=== PATIENT | female | born 1950 | race Caucasian/White ===

== ENCOUNTER 2017-01-24 10:44 | Emergency (ER) | payer SELFPAY ==
--- NOTE | 2017-01-24 12:11 | ER Document Report ---
HPI - HPI Patient complains to provider of: med refill Onset: Just prior to arrival Onset/Duration: Gradual Quality of pain: No pain Pain Level: Denies Context: Presents complaining of needing a medication refill for her blood pressure medicine. Patient is not currently out of the medication although she will be in the next several days. Patient just moved to this area and has not gotten established with a primary doctor if she does not currently have insurance. Patient complains of bilateral lower extremity swelling off and on for the past 3 months. Patient states that when she wakes up in the morning she does not have swelling but by the end of the day her lower extremities will be swollen. Patient denies any chest pain, dyspnea or leg pain. Patient additionally states that she was on amlodipine, HCTZ, and lisinopril although her doctor forgot to refill her lisinopril at her last visit. Patient states that her blood pressure has been running more elevated than normal and she suspects that this is because she has not been taking the lisinopril. Associated Symptoms: Other - Extremity swelling Exacerbated by: Denies Relieved by: Denies Similar symptoms previously: No Recently seen / treated by doctor: No - ROS ROS below otherwise negative: Yes Systems Reviewed and Negative: Yes All other systems reviewed and negative - CONSTITUTIONAL Constitutional: DENIES: Fever - NEURO Neurology: DENIES: Headache, Weakness - CARDIOVASCULAR Cardiovascular: DENIES: Chest pain - RESPIRATORY Respiratory: DENIES: Trouble Breathing, Coughing - MUSCULOSKELETAL Musculoskeletal: REPORTS: Swelling - Off and on, presently resolved - DERM Skin Color: Normal Skin Problems: None Past Medical History - General Information source: Patient - Social History Smoking Status: Never Smoker Frequency of alcohol use: None Drug Abuse: None Occupation: none Lives with: Family Family History: Reviewed & Not Pertinent Patient has suicidal ideation: No Patient has homicidal ideation: No - Past Medical History Cardiac Medical History: Reports: Hx Hypertension Renal/ Medical History: Denies: Hx Peritoneal Dialysis Musculoskeltal Medical History: Reports Other - chronic back pain Surgical Hx: Negative Vertical Provider Document - CONSTITUTIONAL Agree With Documented VS: Yes Exam Limitations: No Limitations General Appearance: WD/WN, No Apparent Distress - INFECTION CONTROL TRAVEL OUTSIDE OF THE [place] IN LAST 30 DAYS: No - HEENT HEENT: Atraumatic, Normocephalic - NECK Neck: Normal Inspection, Supple - RESPIRATORY Respiratory: Breath Sounds Normal, No Respiratory Distress, Chest Non-Tender. negative: Rales, Rhonchi, Wheezing O2 Sat by Pulse Oximetry: 97 - CARDIOVASCULAR Cardiovascular: Regular Rate, Regular Rhythm, No Murmur Pulses: Normal: Dorsalis pedis - MUSCULOSKELETAL/EXTREMETIES Musculoskeletal/Extremeties: MAEW, FROM, Non-Tender, No Edema - NEURO Level of Consciousness: Awake, Alert, Appropriate Motor/Sensory: No Motor Deficit - DERM Integumentary: Warm, Dry, No Rash Course - Re-evaluation Re-evalutation: 01/24/17 13:37 RN advised of ordered labs, pt has yet to have blood drawn 01/24/17 14:23 The patient has been informed that they may have pre-hypertension or hypertension based on a blood pressure reading in the emergency department. I recommend that patient call the primary care provider listed on their discharge instructions or a physician of their choice by this week to arrange follow-up for further evaluation of possible pre-hypertension her hypertension. Reviewed patient's medication dosages from her bottles as well as her last paperwork from her primary doctor which does demonstrate that she had been on lisinopril in addition to amlodipine and HCTZ. - Vital Signs Vital signs: Temp Pulse Resp BP Pulse Ox 98.5 F 77 17 155/88 H 97 01/24/17 11:00 01/24/17 11:00 01/24/17 11:00 01/24/17 11:00 01/24/17 11:00 - Laboratory Result Diagrams: 01/24/17 13:35 Laboratory results interpreted by me: 01/24/17 14:22 Labs- Entire Visit 01/24/17 01/24/17 13:35 13:35 Sodium 144.0 Potassium 4.0 Chloride 102 Carbon Dioxide 29 Anion Gap 13 BUN 13 Creatinine 0.59 Est GFR ( Amer) > 60 Est GFR (Non-Af Amer) > 60 Glucose 106 Calcium 10.0 Total Bilirubin 0.5 Direct Bilirubin 0.3 Indirect Bilirubin Not Reportable Neonat Total Bilirubin Not Reportable AST 30 ALT 30 Alkaline Phosphatase 99 NT-Pro-B Natriuret Pep 75 Total Protein 8.1 Albumin 4.5 Discharge - Discharge Clinical Impression: Hx of essential hypertension, History of peripheral edema, Medication refill Condition: Stable Disposition: HOME, SELF-CARE Instructions: High Blood Pressure ([facility]), Edema, Peripheral ([facility]), Family Physicians / Practices Additional Instructions: Return immediately for any new or worsening symptoms Followup with your primary care provider, call tomorrow to make a followup appointment You will need to see a primary doctor to refill your blood pressure medications. Prescriptions: Amlodipine Besylate 10 mg PO DAILY #30 tab Hydrochlorothiazide 50 mg PO DAILY #30 tablet Lisinopril [Zestril] 10 mg PO DAILY #30 tablet Forms: Elevated Blood Pressure Referrals: [facility] [Provider Group] - Follow up as needed [facility] [Provider Group] - Follow up tomorrow
[2017-01-24 14:10] LABS: ALANINE AMINOTRANSFERASE 30 U/L (9-52); ALBUMIN 4.5 g/dL (3.5-5.0); ALKALINE PHOSPHATASE 99 U/L (38-126); ANION GAP 13 (5-19); ASPARTATE AMINO TRANSFERASE 30 U/L (14-36); BILIRUBIN,DIRECT 0.3 mg/dL (0.0-0.4); BILIRUBIN,TOTAL 0.5 mg/dL (0.2-1.3); BLOOD UREA NITROGEN 13 mg/dL (7-20); CARBON DIOXIDE 29 mmol/L (22-30); CHLORIDE 102 mmol/L (98-107); CREATININE RESULT 0.59 mg/dL (0.52-1.25); GLUCOSE 106 mg/dL (75-110); TOTAL PROTEIN 8.1 g/dL (6.3-8.2)
[2017-01-24 15:23] VITALS: BP 141/79
== END 2017-01-24 15:23 | disposition home or self-care (01) ==
LOC: ER 10:44
DX: Z76.0 Encounter for issue of repeat prescription (principal); R60.0 Localized edema; I10 Essential (primary) hypertension; M79.89 Other specified soft tissue disorders; Z79.899 Other long term (current) drug therapy
CPT/HCPCS: 36415; 80053; 83880; 99282

== ENCOUNTER → 2017-12-25 | Outpatient (CLI) | payer MEDICARE, OTHER ==
--- NOTE | 2017-12-25 12:58 | RADIOLOGY REPORT (SQ) ---
EXAM DESCRIPTION: CAROTID DOPPLER COMPLETED DATE/TIME: 12/25/2017 12:13 pm REASON FOR STUDY: HTN DIZZINESS R42 DIZZINESS AND GIDDINESS I10 ESSENTIAL (PRIMARY) HYPERTENSION COMPARISON: None. TECHNIQUE: Grayscale ultrasound, Doppler velocity and spectra, and color Doppler images acquired of the extra-cranial carotid and vertebral arteries. Images stored on PACS. LIMITATIONS: None. FINDINGS: RIGHT CAROTID CCA Velocities: Within normal limits. ICA Velocities Peak systolic 0.6 m/s. End diastolic 0.31 m/s. Proximal ICA/CCA peak systolic ratio 1.0. Spectra normal. No significant plaque. LEFT CAROTID CCA Velocities: Within normal limits. ICA Velocities Peak systolic 1.06 m/s. End diastolic 0.39 m/s. Proximal ICA/CCA peak systolic ratio 1.5. Spectra normal. No significant plaque. VERTEBRAL ARTERIES: Antegrade flow. Normal waveforms. SUBCLAVIAN ARTERIES: No finding. OTHER: No other significant finding. IMPRESSION: NO HEMODYNAMICALLY SIGNIFICANT STENOSIS. COMMENT: Quality ID #[id number]: Velocity criteria are extrapolated from the diameter data as defined by t he Society of Radiologists in Ultrasound Consensus Conference. Radiology 2003: 229; 340-346. TECHNICAL DOCUMENTATION: JOB ID: [id number] [employer].- All Rights Reserved Reading location - IP/workstation name: [email or web address]
--- NOTE | 2017-12-27 19:12 | XCELERA REPORT ---
[address] [address] Transthoracic Echocardiogram Report Name: DERECK LITTLEJOHN Age: 67 yrs Gender: Female : 1950 Patient Status: Outpatient Patient Location: Study Date: 12/25/2017 09:42 AM Height: 63 in Weight: 180 lb BSA: 1.8 m2 Procedure: A two-dimensional transthoracic echocardiogram with color flow and Doppler was performed. The study was technically limited with all images being suboptimal in quality. Reason For Study: HTN DIZZINESS History: HTN DIZZINESS. Ordering Physician: ALOK VALENTINO Performed By: Iman Alford Interpretation Summary The left ventricle is normal in size. There is normal left ventricular wall thickness. LV EF is > than 65% Left ventricular systolic function is normal. Doppler measurements suggest impaired left ventricular relaxation, which is associated with grade I/IV or mild diastolic dysfunction The left ventricular wall motion is normal. There is no thrombus. There is no ventricular septal defect visualized. The right ventricle is not well visualized secondary to technical limitations The left atrial size is normal. The interatrial septum is intact with no evidence for an atrial septal defect. Mild Calcium Posterior mitral valve leaflet. There is no evidence of mitral valve prolapse. There is no vegetation seen on the mitral valve. There is no mitral valve stenosis. There is a trace amount of mitral regurgitation The aortic valve is trileaflet. The aortic valve opens well. The aortic valve is mildly calcified There is no aortic valvular vegetation. There is no aortic valve stenosis There is no LVOT obstruction. No aortic regurgitation is present. There is no tricuspid stenosis. There is a trace amount of tricuspid regurgitation Right ventricular systolic pressure is at the upper limits of normal RVSP is 30 mm of Hg , with RA mean of 5. There is no pulmonic valvular stenosis. There is a trace amount of pulmonic regurgitation The aortic root is normal size. There is no pericardial effusion. MMode/2D Measurements & Calculations RVDd: 3.6 cm LVIDd: 4.0 cm FS: 37.2 % Ao root diam: 2.7 cm IVSd: 1.1 cm LVIDs: 2.5 cm EDV(Teich): 69.3 ml LVPWd: 1.0 cm ESV(Teich): 22.4 ml Ao root area: 5.7 cm2 EF(Teich): 67.7 % LA dimension: 3.7 cm Doppler Measurements & Calculations MV E max prerna: MV P1/2t max prerna: Ao V2 max: LV V1 max P.9 cm/sec 84.4 cm/sec 123.3 cm/sec 4.4 mmHg MV A max prerna: MV P1/2t: 65.2 msec Ao max PG: LV V1 max: 110.1 cm/sec 6.1 mmHg 104.6 cm/sec MV E/A: 0.77 MVA(P1/2t): 3.4 cm2 MV dec slope: 379.2 cm/sec2 MV dec time: 0.22 sec PA V2 max: PI end-d prerna: TR max prerna: 106.6 cm/sec 118.1 cm/sec 249.8 cm/sec PA max PG: TR max P.5 mmHg 25.0 mmHg Left Ventricle The left ventricle is normal in size. There is normal left ventricular wall thickness. LV EF is > than 65%. Left ventricular systolic function is normal. Doppler measurements suggest impaired left ventricular relaxation, which is associated with grade I/IV or mild diastolic dysfunction. The left ventricular wall motion is normal. There is no thrombus. There is no ventricular septal defect visualized. Right Ventricle The right ventricle is not well visualized secondary to technical limitations. Atria The right atrium is normal. The left atrial size is normal. The interatrial septum is intact with no evidence for an atrial septal defect. Mitral Valve Mild Calcium Posterior mitral valve leaflet. There is no evidence of mitral valve prolapse. There is no vegetation seen on the mitral valve. There is no mitral valve stenosis. There is a trace amount of mitral regurgitation. Aortic Valve The aortic valve is trileaflet. The aortic valve opens well. The aortic valve is mildly calcified. There is no aortic valvular vegetation. There is no aortic valve stenosis. There is no LVOT obstruction. No aortic regurgitation is present. Tricuspid Valve There is no tricuspid stenosis. There is a trace amount of tricuspid regurgitation. Right ventricular systolic pressure is at the upper limits of normal. RVSP is 30 mm of Hg , with RA mean of 5. Pulmonic Valve There is no pulmonic valvular stenosis. There is a trace amount of pulmonic regurgitation. Great Vessels The aortic root is normal size. Effusions There is no pericardial effusion. : ALOK VALENTINO > Lizett Peterson
== END ==
LOC: SP 08:28
PROVIDERS: ATTEND Physician Assistant
DX: R42 Dizziness and giddiness (principal); I10 Essential (primary) hypertension
CPT/HCPCS: 93306; 93880

== ENCOUNTER → 2019-01-31 | Outpatient (CLI) | payer MEDICARE, MEDICAID ==
--- NOTE | 2019-01-31 12:01 | RADIOLOGY REPORT (SQ) ---
EXAM DESCRIPTION: U/S ABDOMEN COMPLETE W/DOPPLER COMPLETED DATE/TIME: 01/31/2019 7:37 am REASON FOR STUDY: EPIGASTRIC SWELLING, MASS OR LUMP (R19.06) R19.06 EPIGASTRIC SWELLING, MASS OR RUPERT MP COMPARISON: None. TECHNIQUE: Dynamic and static grayscale images acquired of the abdomen and recorded on PACS. Additio nal selected color Doppler and spectral images recorded. Note: Study does not meet criteria for complete doppler/duplex scan LIMITATIONS: None. FINDINGS: PANCREAS: No masses. Visualized pancreatic duct normal caliber. LIVER: No masses. Echotexture normal. LIVER VASCULATURE: Normal directional flow of the main portal vein and hepatic veins. GALLBLADDER: No stones. Normal wall thickness. No pericholecystic fluid. ULTRASOUND-DETECTED LEWIS'S SIGN: Negative. INTRAHEPATIC DUCTS AND COMMON DUCT: CBD and intrahepatic ducts normal caliber. No filling defects. INFERIOR VENA CAVA: Normal flow. AORTA: No aneurysm. RIGHT KIDNEY: Normal size. Normal echogenicity. No solid or suspicious masses. No hydronephros is. No calcifications. LEFT KIDNEY: Normal size. Normal echogenicity. No solid or suspicious masses. No hydronephrosi s. No calcifications. SPLEEN: Normal size. No solid masses. PERITONEAL AND PLEURAL SPACES: No ascites or effusions. OTHER: No other significant finding. IMPRESSION: NORMAL ABDOMINAL ULTRASOUND. TECHNICAL DOCUMENTATION: JOB ID: [id number]- All Rights Reserved Reading location - IP/workstation name: [email or web address]
== END ==
LOC: RAD 06:56
PROVIDERS: ATTEND Physician Assistant
DX: R19.06 Epigastric swelling, mass or lump (principal)
CPT/HCPCS: 76700; 93976

== ENCOUNTER → 2019-05-23 | Outpatient (CLI) | payer MEDICARE, MEDICAID ==
--- NOTE | 2019-05-23 14:17 | WOMENS IMAGING REPORT ---
EXAM DESCRIPTION: 3D SCREENING MAMMO BILAT COMPLETED DATE/TIME: 05/23/2019 1:55 pm REASON FOR STUDY: Z12.31 SCREENING MAMMO Z12.31 ENCNTR SCREEN MAMMOGRAM FOR MALIGNANT NEOPLASM OF B RE COMPARISON: None. EXAM PARAMETERS: Views: Standard craniocaudal and mediolateral oblique views of each breast recorded using digital acquisition and breast tomosynthesis. Read with the assistance of CAD. .[facility] - R2 Application Software Engineer Version 9.2 LIMITATIONS: None. FINDINGS: No suspicious masses, suspicious calcifications or architectural distortion. No areas of c oncern. IMPRESSION: NEGATIVE MAMMOGRAM. BIRADS 1. BREAST DENSITY: c. The breasts are heterogeneously dense, which may obscure small masses. BIRAD: ASSESSMENT: 1 NEGATIVE RECOMMENDATION: ROUTINE SCREENING COMMENT: The patient has been notified of the results by letter per MQSA requirements. Additional no tification policies are in place for contacting patient with suspicious or incomplete findings. Quality ID #225: The [employer] recommends an annual screening mammogram for women aged 40 years or over. This facility utilizes a reminder system to ensure that all patients receive reminder letters, and/or direct phone calls for appointments. This includes reminders for routine scr eening mammograms, diagnostic mammograms, or other Breast Imaging Interventions when appropriate. Th is patient will be placed in the appropriate reminder system. TECHNICAL DOCUMENTATION: FINDING NUMBER: (1) ASSESSMENT: (1) JOB ID: [id number] [employer]- All Rights Reserved Reading location - IP/workstation name: [email or web address]
== END ==
LOC: WI 13:30
PROVIDERS: ATTEND Physician Assistant
DX: Z12.31 Encounter for screening mammogram for malignant neoplasm of breast (principal)
CPT/HCPCS: 77063; 77067

== ENCOUNTER → 2019-10-22 | Outpatient (CLI) | payer MEDICARE, MEDICAID ==
--- NOTE | 2019-10-22 12:15 | WOMENS IMAGING REPORT ---
EXAM DESCRIPTION: 3D DX MAMMO LEFT UNILAT IMAGES COMPLETED DATE/TIME: 10/22/2019 8:45 am REASON FOR STUDY: N64.4 MASTODYNIA N64.4 MASTODYNIA COMPARISON: Digital tomosynthesis bilateral screening mammogram dated 05/23/2019. EXAM PARAMETERS: Standard craniocaudal and mediolateral oblique images of the breast recorded using digital acquisition and breast tomosynthesis. Read with the assistance of CAD. .[facility] - [employer] Clinical Pathologist Version 9.2 LIMITATIONS: None. FINDINGS: BREAST LATERALITY: LEFT MASSES: A marker was placed over the clinically palpable mass in the upper medial breast, posterior depth. CALCIFICATIONS: No new or suspicious calcifications. ARCHITECTURAL DISTORTION: None. ASYMMETRY: None noted. OTHER: No other significant findings. BREAST ULTRASOUND: TECHNIQUE: Static and dynamic grayscale images acquired of the left breast in the specific areas of c linical/mammographic concern. Selected color Doppler images recorded. ELASTOGRAPHY PERFORMED: No. LIMITATIONS: None. FINDINGS: MASS: A well-circumscribed 1.7 x 0.8 x 1.5 cm hyperechoic mass between the 10-11 o'clock axis. No b lood flow demonstrated. This finding correlates to the clinically palpable mass. ELASTOGRAPHY CHARACTERISTICS: Not applicable. OTHER: No other significant finding. IMPRESSION: 1. A well-circumscribed between the 10-11 o'clock axis on ultrasound examination. This finding correlates to the clinically palpable mass a represent a lipoma. BREAST DENSITY: c. The breast is heterogeneously dense, which may obscure small masses. BIRAD: ASSESSMENT: 3-6 M Probably benign finding. Initial short-interval follow-up suggested. RECOMMENDATION: 1. Clinical correlation and patient advised to follow-up with her provider. The pa tient may desire an ultrasound-guided biopsy. COMMENT: The patient has been notified of the results by letter per SA requirements. Additional no tification policies are in place for contacting patient with suspicious or incomplete findings. Quality ID #225: The [employer] recommends an annual screening mammogram for women aged 40 years or over. This facility utilizes a reminder system to ensure that all patients receive reminder letters, and/or direct phone calls for appointments. This includes reminders for routine scr eening mammograms, diagnostic mammograms, or other Breast Imaging Interventions when appropriate. Th is patient will be placed in the appropriate reminder system. TECHNICAL DOCUMENTATION: FINDING NUMBER: (1) ASSESSMENT: (1) JOB ID: [id number] 2010 [employer]- All Rights Reserved Reading location - IP/workstation name: [email or web address]
--- NOTE | 2019-10-22 12:15 | WOMENS IMAGING REPORT ---
EXAM DESCRIPTION: U/S BREAST UNILAT LIMITED COMPLETE DATE/TIME: 10/22/2019 9:06 am REASON FOR STUDY: LT BREAST N64.4 N64.4 MASTODYNIA FINDINGS: Please see combined report for performance of procedure and radiologic supervision and int erpretation. IMPRESSION: Please see combined report for performance of procedure and radiologic supervision and i nterpretation. Reading location - IP/workstation name: [email or web address]
== END ==
LOC: WI 08:25
PROVIDERS: ATTEND Physician Assistant
DX: N64.4 Mastodynia (principal)
CPT/HCPCS: 76642; 77065; G0279

== ENCOUNTER → 2019-12-30 | Outpatient (CLI) | payer MEDICARE, MEDICAID ==
--- NOTE | 2019-12-30 12:52 | RADIOLOGY REPORT (SQ) ---
EXAM DESCRIPTION: LUMBAR SPINE COMPLETE IMAGES COMPLETED DATE/TIME: 12/30/2019 12:16 pm REASON FOR STUDY: LBP M54.5 LOW BACK PAIN COMPARISON: None. NUMBER OF VIEWS: Five views including obliques. TECHNIQUE: AP, lateral, oblique, and sacral radiographic images acquired of the lumbar spine. LIMITATIONS: None. FINDINGS: MINERALIZATION: Normal. SEGMENTATION: Normal. No transitional anatomy. ALIGNMENT: There is minimal anterolisthesis of L4 on L5. VERTEBRAE: Maintained height. No fracture or worrisome bone lesion. DISCS: There is mild disc narrowing at L4-5. POSTERIOR ELEMENTS: Hypertrophic facet changes from L4-S1. HARDWARE: None in the spine. PARASPINAL SOFT TISSUES: Normal. PELVIS: Intact as visualized. No fractures or worrisome bone lesions. SI joints intact. OTHER: No other significant finding. IMPRESSION: Minimal anterolisthesis of L4 on L5. Degenerative disc changes at L4-5. Facet arthropa thy. TECHNICAL DOCUMENTATION: JOB ID: [id number] 2010 [employer]- All Rights Reserved Reading location - IP/workstation name: [email or web address]
== END ==
LOC: OD 11:31
PROVIDERS: ATTEND Physician Assistant
DX: M54.5 Low back pain (principal)
CPT/HCPCS: 72110

== ENCOUNTER → 2020-04-05 | Outpatient (CLI) | payer MEDICARE, MEDICAID ==
--- NOTE | 2020-04-05 10:32 | WOMENS IMAGING REPORT ---
EXAM DESCRIPTION: LEFT DIAGNOSTIC MAMMO W/CAD IMAGES COMPLETED DATE/TIME: 04/05/2020 10:14 am REASON FOR STUDY: R92.8 OTHER ABNORMAL AND INCONCLUSIVE FINDINGS ON DIAGNOSTIC IMAGING OF SHERWIN R92.8 OTH ABN AND INCONCLUSIVE FINDINGS ON DX IMAGING OF SHERWIN COMPARISON: Digital diagnostic left breast mammogram dated 10/22/2019 and digital bilateral screening mammogram dated 05/23/2019. EXAM PARAMETERS: Standard craniocaudal and mediolateral oblique images of the breast recorded with d igital acquisition. Read with the assistance of CAD. .[facility] - [employer] Marine Welder Version 9.2 LIMITATIONS: None. FINDINGS: BREAST LATERALITY: LEFT MASSES: Since the prior examination, postsurgical changes upper medial left breast. The patient sta rojas that a biopsy has been performed and was negative. No suspicious masses. CALCIFICATIONS: No new or suspicious calcifications. ARCHITECTURAL DISTORTION: None. ASYMMETRY: None noted. OTHER: No other significant findings. IMPRESSION: 1. No mammographic evidence of malignancy. BREAST DENSITY: c. The breast is heterogeneously dense, which may obscure small masses. BIRAD: ASSESSMENT: 2 Benign findings. RECOMMENDATION: 1. Routine screening mammogram September 2020. COMMENT: The patient has been notified of the results by letter per MQSA requirements. Additional no tification policies are in place for contacting patient with suspicious or incomplete findings. Quality ID #225: The [employer] recommends an annual screening mammogram for women aged 40 years or over. This facility utilizes a reminder system to ensure that all patients receive reminder letters, and/or direct phone calls for appointments. This includes reminders for routine scr eening mammograms, diagnostic mammograms, or other Breast Imaging Interventions when appropriate. Th is patient will be placed in the appropriate reminder system. TECHNICAL DOCUMENTATION: FINDING NUMBER: (1) ASSESSMENT: (1) JOB ID: [id number] 2010 [employer]- All Rights Reserved Reading location - IP/workstation name: [email or web address]
== END ==
LOC: WI 09:48
PROVIDERS: ATTEND Physician Assistant
DX: R92.8 Other abnormal and inconclusive findings on diagnostic imaging of breast (principal)
CPT/HCPCS: 77065

== ENCOUNTER → 2020-06-08 | Outpatient (CLI) | payer MEDICARE, MEDICAID ==
--- NOTE | 2020-06-08 16:58 | RADIOLOGY REPORT (SQ) ---
EXAM DESCRIPTION: FINGERS RIGHT IMAGES COMPLETED DATE/TIME: 06/08/2020 10:13 am REASON FOR STUDY: PAIN OF RT THUMB M79.644 PAIN IN RIGHT FINGER(S) COMPARISON: None. NUMBER OF VIEWS: Three views. TECHNIQUE: AP, lateral, and oblique images acquired of the right thumb. LIMITATIONS: None. FINDINGS: MINERALIZATION: Normal. BONES: No acute fracture or dislocation. No worrisome bone lesions. SOFT TISSUES: No soft tissue swelling. No foreign body. OTHER: No other significant finding. IMPRESSION: NO RADIOGRAPHIC EVIDENCE OF ACUTE INJURY. COMMENT: SITE OF TRAUMA/COMPLAINT MARKED/STAMP COMPLETED: YES. TECHNICAL DOCUMENTATION: JOB ID: [id number] 2010 [employer]- All Rights Reserved Reading location - IP/workstation name: [email or web address]
== END ==
LOC: OD 10:01
PROVIDERS: ATTEND Physician Assistant
DX: M79.644 Pain in right finger(s) (principal)